=== PATIENT | female | born 1930 | race Caucasian/White ===

== ENCOUNTER 2017-10-01 20:07 | Observation (INO) | payer OTHER, MEDICARE ==
[2017-10-01] MEDS ORDERED: NS 1,000 ML IV ONE (20:31)
--- NOTE | 2017-10-01 20:35 | EDPHY ---
H & P Time Seen by Provider: 10/01/17 20:16 HPI/ROS: CHIEF COMPLAINT: Speech difficulty now resolved HISTORY OF PRESENT ILLNESS: The patient is an 87-year-old female who is visiting from [place]. She was sitting with her daughter writing [place] cards this evening at 6:15 a.m. when she suddenly developed difficulty writing. She threw away 2 cards and then began asking for help while writing the 3rd. Then her daughter noticed that her speech became mumbled. She did not have any weakness or facial deficits. Her daughter called her own doctor line who recommended they take the patient to the hospital. By the time she returned to her mom, the symptoms had resolved. Her symptoms lasted for a total of 20 min. They ate dinner and then the patient stated that she felt slightly lightheaded and want to come to the emergency department. She has not had a fever. She has not had any trauma. She denies any significant medical history does not take any medications. REVIEW OF SYSTEMS: Constitutional: denies: chills, fever, recent illness, recent injury EENTM: denies: blurred vision, double vision, nose congestion Respiratory: denies: cough, shortness of breath Cardiac: denies: chest pain, irregular heart rate, lightheadedness, palpitations Gastrointestinal/Abdominal: denies: abdominal pain, diarrhea, nausea, vomiting, blood streaked stools Genitourinary: denies: dysuria, frequency, hematuria, pain Musculoskeletal: denies: joint pain, muscle pain Skin: denies: lesions, rash, jaundice, bruising Neurological: See HPI Hematologic/Lymphatic: denies: blood clots, easy bleeding, easy bruising Immunologic/allergic: denies: HIV/AIDS, transplant - Physical Exam General Appearance: WD/WN, mild distress Eyes, Ears, Nose, Throat Exam: PERRL/EOMI, normal ENT inspection, pharynx normal Neck: non-tender, full range of motion, supple, normal inspection. No: stiff neck, tender lateral Cardiovascular/Chest: normal peripheral pulses, regular rate, rhythm Respiratory: chest non-tender, lungs clear, normal breath sounds. No: crackles , rhonchi Gastrointestinal/Abdominal: normal bowel sounds, non tender, soft Back Exam: normal inspection Extremity: normal range of motion, non-tender, normal inspection Mental Status: alert, oriented x 3 CN's Exam: normal hearing, normal speech, PERRL, normal eye position, normal gag reflex, normal pupil position, normal speech. No: facial asymmetry, facial droop, facial paresthesias, gaze palsy, tongue deviation to R, tongue deviation to L Coordination/Gait: normal finger to nose, normal gait Motor/Sensory: normal. No: motor deficit, sensory deficit, pronator drift (R), pronator drift (L), weak motor strength RUE, weak motor strength LUE, weak motor strength RLE, weak motor strength LLE DTR: tricep (R): 2+, tricep (L): 2+, knee (R): 2+, knee (L): 2+ Skin Exam: warm/dry, normal color Lymphatic: no adenopathy NIH stroke score 0 Source: Patient, Family Exam Limitations: No limitations - Medical/Surgical History Hx Asthma: No Hx Chronic Respiratory Disease: No Hx Diabetes: No Hx Cardiac Disease: No Hx Renal Disease: No Hx Cirrhosis: No Hx Alcoholism: No - Family History Significant Family History: No pertinent family hx - Social History Smoking Status: Never smoked Alcohol Use: Sober Drug Use: None Constitutional: Initial Vital Signs Temperature (C) 36.6 C 10/01/17 20:10 Heart Rate 97 10/01/17 20:10 Respiratory Rate 20 10/01/17 20:10 Blood Pressure 182/92 H 10/01/17 20:10 O2 Sat (%) 94 10/01/17 20:10 O2 Delivery Mode Room Air Allergies/Adverse Reactions: No Known Allergies Allergy (Unverified 10/01/17 20:18) Home Medications: Medication Instructions Recorded B12/Levomefolate Calcium/B-6 10/01/17 [Foltx Tablet] Combtapan (*) 10/01/17 Travatan Z 10/01/17 Aspirin [Aspirin 81mg (*)] 81 mg PO DAILY #100 tab 10/02/17 Atorvastatin Calcium [Lipitor 20 20 mg PO DAILY #30 tab 10/02/17 mg (*)] Medical Decision Making - Diagnostics EKG Interpretation: An EKG obtained and was read and documented in trace view. Please see trace view for full reading and report. Sinus rhythm. No acute ischemic changes ED Course/Re-evaluation: The patient clinically has had a TIA. Her NIH stroke score is now 0. She does have some baseline dementia but according to family this is unchanged. The patient's imaging and lab work initially are normal. I recommended admission for further workup. This is her 1st TIA. Patient family agree. I discussed the case with Dr. Alex Michaels who will admit to the medical service. Differential Diagnosis: Partial list of the Differential diagnosis considered include but were not limited to; TIA, syncope, seizure and although unlikely based on the history and physical exam, I also considered CVA, infection , tumor. - Data Points Laboratory Results: Laboratory Results 10/01/17 20:35 10/01/17 20:35 Medications Given: Discontinued Medications Aspirin (Aspirin) 324 mg PO EDNOW ONE Stop: 10/01/17 21:13 Last Admin: 10/01/17 21:30 Dose: 324 mg Aspirin (Aspirin) 81 mg PO DAILY HEAVENLY Stop: 03/31/18 08:59 Last Admin: 10/02/17 07:49 Dose: 81 mg Enoxaparin Sodium (Lovenox) 40 mg SC DAILY HEAVENLY Stop: 03/31/18 08:59 Last Admin: 10/02/17 07:49 Dose: 40 mg Sodium Chloride (Ns) 1,000 mls @ 500 mls/hr IV EDNOW ONE PRN Reason: Protocol Stop: 10/01/17 22:30 Last Admin: 10/01/17 20:57 Dose: 1,000 mls Labetalol HCl (Trandate Injection) 5 mg IVP ONCE ONE Stop: 10/01/17 22:13 Last Admin: 10/01/17 22:14 Dose: 5 mg Lisinopril (Zestril) 10 mg PO DAILY PENDING SALE TO [facility] Stop: 03/31/18 08:59 Last Admin: 10/02/17 07:49 Dose: 10 mg Departure - Departure Disposition: [facility] Inpatient Acute Clinical Impression: Transient cerebral ischemia Qualifiers: Transient cerebral ischemia type: unspecified Qualified Code(s): G45.9 - Transient cerebral ischemic attack, unspecified Condition: Fair
[2017-10-01 20:43] LABS: PLATELET COUNT 220 10^3/uL (150-400)
--- NOTE | 2017-10-01 20:43 | CPEKG ---
Heart Rate: 90 RR Interval: 667 P-R Interval: 172 QRSD Interval: 88 QT Interval: 376 QTC Interval: 460 P Callicoon: 45 QRS Callicoon: -9 T Wave Callicoon: 36 EKG Severity - NORMAL ECG - EKG Impression: SINUS RHYTHM Electronically Signed By: Patricio Garay 01-Oct-2017 20:45:17
[2017-10-01 20:52] LABS: INR 0.95 (0.83-1.16); PROTIME(PATIENT) 12.6 SEC (12.0-15.0)
[2017-10-01] MEDS ORDERED: ASPIRIN 81 MG CHEWABLE TAB PO ONE (21:12)
[2017-10-01] MEDS ORDERED: LABETALOL HCL 5 MG/ML 20 ML MDV IVP ONE (22:12)
[2017-10-01] MEDS ORDERED: LABETALOL HCL 5 MG/ML 20 ML MDV ONE (22:13)
[2017-10-01] MEDS ORDERED: ONDANSETRON 4 MG/2 ML VIAL IVP PRN (23:25)
[2017-10-01] MEDS ORDERED: ACETAMINOPHEN 325 MG TAB PO PRN (23:25)
--- NOTE | 2017-10-01 23:33 | PDGENHP ---
History and Physical - Chief Complaint difficulty writing, mumbled speech - History of Present Illness Source - patient able to provide history, daughter at bedside and supplements details. HPI - Pleasant 87 yo F with pmx significant for glaucoma who presented to [facility] this evening History Information - Allergies/Home Medication List Allergies/Adverse Reactions: No Known Allergies Allergy (Unverified 10/01/17 20:18) Home Medications: B12/Levomefolate Calcium/B-6 [Foltx Tablet] 10/01/17 [Last Taken Unknown] Combigan (*) 10/01/17 [Last Taken Unknown] Travatan Z 10/01/17 [Last Taken Unknown] I have personally reviewed and updated: family history, medical history, social history, surgical history - Past Medical History Additional medical history: glaucoma. macular degeneration. osteoporosis s/p tx. benign essential HTN untreated. hearing deficit with hearing aids. breast ca in remission. murmur known. pt denies hx of valvular disease. narrowed/stenotic airway - Surgical History Additional surgical history: bilateral TKA. R mastectomy with LN dissection - Family History Additional family history: no fhx CVA, CAD - Social History Smoking Status: Never smoked Alcohol Use: None Drug Use: None Additional social history: patient lives in [place]. Here visiting daughter. COR - FULL. daughter Madalyn is MDPOA. Review of Systems Review of Systems: ROS: 10pt was reviewed & negative except for what was stated in HPI & below Constitutional: Denies: chills, fever Cardiac: Reports: no symptoms. Denies: chest pain, edema, lightheadedness, palpitations Respiratory: Reports: no symptoms Gastrointestinal: Reports: no symptoms Genitourinary: Reports: no symptoms Muscolosketal: Reports: no symptoms Skin: Reports: no symptoms Neurological: Reports: no symptoms Hematologic/Lymphatic: Reports: no symptoms Physical Exam Physical Exam: Selected Entries 10/01/17 20:10 Blood Pressure Automatic Method Heart Rate 97 Respiratory 20 Rate O2 Sat (%) 94 Temperature (C) 36.6 C Blood Pressure 182/92 H Mean Arterial 122 H Pressure (MAP) O2 Delivery Room Air Mode Temperature Oral Source Temp Pulse Resp BP Pulse Ox 36.6 C 85 18 182/97 H 95 10/01/17 23:05 10/01/17 23:05 10/01/17 23:05 10/01/17 23:05 10/01/17 23:05 Constitutional: no apparent distress, not in pain, chronically ill appearing, other (NAd. pleasant elderly frail appearing female is laying comfortably in bed. daughter and son-in-law at bedside. ) Eyes: PERRL, anicteric sclera, EOMI Ears, Nose, Mouth, Throat: moist mucous membranes, hard of hearing, No hearing normal, No no oral mucosal ulcers, No poor dentition Cardiovascular: regular rate and rhythym, systolic murmur (3/6 systolic greatest right sternal border), pulses symmetric bilaterally, No edema Peripheral Pulses: 1+: dorsalis-pedis (R), dorsalis-pedis (L) Respiratory: no respiratory distress, no rales or rhonchi, clear to auscultation , No expiratory wheeze Gastrointestinal: normoactive bowel sounds, soft, non-tender abdomen, no palpable masses, No tenderness Genitourinary: no bladder tenderness, No cervantes in urethra Skin: warm, normal color, no rashes or abrasions, No mottled, No rash Musculoskeletal: no muscle tenderness, No joint tenderness, No abnormal gait Neurologic: weakness (left proximal and distal arm strength 4/5 compared to right 5/5. ), CN II-XII Intact, other (decreased reflexes bilaterally knees. ), No facial droop Psychiatric: interacting appropriately, not anxious, not encephalopathic, thought process linear, No encephalopathic, No anxious, No poor insight, No poor judgement, No poor memory Lab Data & Imaging Review 10/02/17 03:09 10/02/17 03:09 WBC 7.41 10^3/uL (3.80-9.50) 10/01/17 20:35 RBC 4.49 10^6/uL (4.18-5.33) 10/01/17 20:35 Hgb 13.7 g/dL (12.6-16.3) 10/01/17 20:35 Hct 40.9 % (38.0-47.0) 10/01/17 20:35 MCV 91.1 fL (81.5-99.8) 10/01/17 20:35 MCH 30.5 pg (27.9-34.1) 10/01/17 20:35 MCHC 33.5 g/dL (32.4-36.7) 10/01/17 20:35 RDW 13.2 % (11.5-15.2) 10/01/17 20:35 Plt Count 220 10^3/uL (150-400) 10/01/17 20:35 MPV 10.3 fL (8.7-11.7) 10/01/17 20:35 Neut % (Auto) 64.5 % (39.3-74.2) 10/01/17 20:35 Lymph % (Auto) 21.6 % (15.0-45.0) 10/01/17 20:35 Schleicher % (Auto) 9.3 % (4.5-13.0) 10/01/17 20:35 Eos % (Auto) 3.9 % (0.6-7.6) 10/01/17 20:35 Baso % (Auto) 0.4 % (0.3-1.7) 10/01/17 20:35 Nucleat RBC Rel Count 0.0 % (0.0-0.2) 10/01/17 20:35 Absolute Neuts (auto) 4.78 10^3/uL (1.70-6.50) 10/01/17 20:35 Absolute Lymphs (auto) 1.60 10^3/uL (1.00-3.00) 10/01/17 20:35 Absolute Monos (auto) 0.69 10^3/uL (0.30-0.80) 10/01/17 20:35 Absolute Eos (auto) 0.29 10^3/uL (0.03-0.40) 10/01/17 20:35 Absolute Basos (auto) 0.03 10^3/uL (0.02-0.10) 10/01/17 20:35 Absolute Nucleated RBC 0.00 10^3/uL (0-0.01) 10/01/17 20:35 Immature Gran % 0.3 % (0.0-1.1) 10/01/17 20:35 Immature Gran # 0.02 10^3/uL (0.00-0.10) 10/01/17 20:35 PT 12.6 SEC (12.0-15.0) 10/01/17 20:35 INR 0.95 (0.83-1.16) 10/01/17 20:35 APTT 27.8 SEC (23.0-38.0) 10/01/17 20:35 Sodium 139 mEq/L (134-144) 10/01/17 20:35 Potassium 4.0 mEq/L (3.5-5.2) 10/01/17 20:35 Chloride 103 mEq/L (97-110) 10/01/17 20:35 Carbon Dioxide 22 mEq/l (22-31) 10/01/17 20:35 Anion Gap 14 mEq/L (8-16) 10/01/17 20:35 BUN 15 mg/dL (7-23) 10/01/17 20:35 Creatinine 0.9 mg/dL (0.6-1.0) 10/01/17 20:35 Estimated GFR 59 10/01/17 20:35 Glucose 126 mg/dL (70-100) H 10/01/17 20:35 Calcium 9.3 mg/dL (8.5-10.4) 10/01/17 20:35 Troponin I < 0.012 ng/mL (0.000-0.034) 10/01/17 20:35 Imaging Review: Chest, PA and Lateral October 01, 2017 History: Acute neurologic changes. Findings: The heart size is within normal limits. The aorta is tortuous, with calcifications, indicating atherosclerosis disease. Small calcified granulomas are seen bilaterally. No evidence for acute airspace consolidation. Emphysematous configuration to the chest. No evidence for a pleural effusion or pneumothorax. Degenerative change thoracic spine, with scoliotic curvature at the thoracolumbar junction. Impression: No evidence for acute cardiopulmonary abnormality. Chronic findings, as above. CT Head, Without Contrast History: Difficulty writing and speaking. Possible TIA versus CVA. Technique: Standard noncontrast head CT protocol utilizing axial images acquired through the calvarium. Images were reconstructed down to 1.25-mm slice thickness, as well. Radiation dose technique was utilized. Findings: Mild periventricular and deep hemispheric white matter change. No evidence for acute infarct, intracranial hemorrhage, or mass. The ventricles, sulci, and cisterns are diffusely prominent. No evidence for an extraaxial fluid collection. Vascular calcifications are seen intracranially. No evidence for a skull fracture. No evidence for an air- fluid level in the paranasal sinuses. Impression: 1. No evidence for acute intracranial abnormality. 2. Mild periventricular and deep hemispheric white matter change that can be seen with small vessel ischemic disease. 3. Generalized cerebral atrophy. Visualized and Interpreted Chest x-ray results: Yes Visualized and Interpreted imaging results: Yes Visualized and Interpreted EKG results: Yes EKG additional interpertation: NSR 90s. no acute ST elevations. <1mm depression III only. QTc 460. Assessment & Plan Assessment: 87 yo F with hx HTN untreated, glaucoma who presented to [facility] with sudden onset aphasia now resolved. #Aphasia - concerning for TIA. patient sx reported to be completely resolved. CN testing intact. patient with slight decreased strength left UE compared to right. Patient admitted with TIA protocol, neuro testing. echo, carotid doppler , MRI in AM. s/p ASA at [facility] will continue 81mg daily. PT/OT/SL testing. patient passed swallow eval at [facility]. check Lipid panel, a1c in AM. #TIA - as above. #accelerated HTN - s/p dose labetalol. patient reports known history of HTN untreated was being monitored. will start lisinopril 10mg daily. patient will plan to f/u with PCP. slow titrate down on BPs as likely chronically elevated. #hyperglycemia - nonfasting lab. check AM BMP and a1c in AM. chronic medical problems glaucoma - continue gtts macular degeneration - assistance with ambulation prn. osteoporosis - s/p tx hearing deficit - pt without hearing aids at bedside. FEN - PO hydration as tolerated. electrolyte replacement if needed. cardiac diet. PPX - SCDs. lovenox. COR - FULL. daughter Madalyn CARRIZALES Dispo - admit to observation on med/surg for close neurologic monitoring.
[2017-10-02 03:23] VITALS: RESP 16
[2017-10-02 04:14] LABS: PLATELET COUNT 175 10^3/uL (150-400)
[2017-10-02 07:29] VITALS: BP 127/59; PULSE 69; TEMP 97.8; O2SAT 94
[2017-10-02] MEDS ORDERED: ENOXAPARIN 40 MG/0.4 ML SYR SC SCH (09:00)
[2017-10-02] MEDS ORDERED: LISINOPRIL 10 MG TAB PO SCH (09:00)
[2017-10-02] MEDS ORDERED: ASPIRIN 81 MG CHEWABLE TAB PO SCH (09:00)
--- NOTE | 2017-10-02 11:21 | GDS ---
[f rep st] DISCHARGE SUMMARY DISCHARGE DIAGNOSES: 1. Resolved difficulty writing and speaking. Suspect transient ischemic attack. 2. History of hypertension. 3. History of glaucoma. 4. Osteoporosis. HOSPITAL COURSE AND STAY BY PROBLEM: Resolved aphasia, suspect TIA: The patient was placed on obser vation on telemetry where she had no malignant arrhythmias. A carotid Doppler was done that was nega tive for flow-limiting carotid artery stenosis. An echo was done prior to discharge. Preliminary re ad was negative for thrombus. She does have some aortic stenosis. Total cholesterol was 165, LDL 94 , HDL 49. A1c is currently pending. On day of discharge, the patient states she feels fine and requests to be [facility] so she can go to a show in [place]. An MRI of the brain was ordered. The patient would like to karen ve as soon as possible and would like to have the MRI done as an outpatient, which I think is reasona ble. PHYSICAL EXAM: VITAL SIGNS: On day of discharge, blood pressure 127/59, pulse 69, respiratory rate 16, O2 saturation 94% on room air, temperature afebrile. NEURO: Cranial nerves 2-12 grossly intact. No pronator drift. Face is symmetric. Speech is normal. Muscle strength 5/5 flexion, extension i n the upper and lower extremities, muscle strength 5/5 hydrologist strength bilaterally. DISCHARGE MEDICATIONS: Please refer to discharge medication reconciliation in [facility] for full deta ils. Below is a preliminary list. New medications on hospital discharge: Aspirin 81 mg daily, Lipitor 20 mg daily. DISCHARGE INSTRUCTIONS: The patient will be discharged from the hospital where she should follow up with her primary care provider upon returning to [place]. At that time, an MRI can be considered. She will need followup of her hemoglobin A1c. She is instructed to seek emergency medical attentio n if she develops any recurrent signs of stroke. /[id number]/MODL
--- NOTE | 2017-10-02 13:26 | ECHO ---
[email or web address] [address] Main: [phone] Fax: Transthoracic Echocardiogram Name: DOROTA MEZA MR#: [id number] Study Date: 10/02/2017 Study Time: 09:50 AM Date of : 1930 Age: 87 year(s) Height: 160 cm (63 in.) Weight: 57.61 kg (127 lb.) BSA: 1.59 m2 Gender: Female Examination: Echo Indication: TIA Image Quality: Contrast: Requested by: Coleen Hendrickson BP: 127 mmHg/59 mmHg Heart Rate: Rhythm: Indication: TIA Procedure Staff Senior Software Manager: Kandy Chua Reading Physician: Chevy Meyers Requesting Provider: Conclusions: Mildly dilated left ventricle. Mild concentric LV hypertrophy. Normal global systolic LV function. The ejection fraction is estimated to be 65-70 %. The mitral valve is normal in appearance and function. Trivial mitral valve regurgitation. Mild calcific aortic valve stenosis. Mild aortic valve regurgitation is present. AV max PG is 19mmHG. AV mean PG is 11mmHG.. Trivial to mild tricuspid valve regurgitation. Measurements: Chambers Valvular Assessment AV/MV Valvular Assessment TV/PV Normal Normal Normal Name Value Range Name Value Range Name Value Range Ao Katherine (MM): 3.7 cm (2.2 cm-3.7 AV meanP mmHg ( - ) TR Vmax: 2.21 mm/s ( - ) cm) LVOT Vmax: 1.02 m/s (0.7 m/s-1.1 TR PGmax: 20 mmHg ( - ) IVSd (2D): 0.8 cm (0.6 cm-1.1 m/s) syst. PAP: 25 mmHg ( - ) cm) TEVIN (VTI): 2.1 cm ( - ) LVDd (2D): 6.0 cm (3.9 cm-5.3 MV E Vmax: 0.64 m/s ( - ) cm) MV A Vmax: 0.82 m/s ( - ) LVDs (2D): 4.0 cm (2.1 cm-4 MV E/A: 0.78 ( - ) cm) LVPWd (2D): 0.8 cm ( - ) LVOTd 2.2 cm 2.2 cm mm LVEF (MOD4): 73 % (>=55 %) EF Range: 65-70 % Continued Measurements: Chambers Valvular Assessment AV/MV Valvular Assessment TV/PV Patient: DOROTA MEZA Study Date: 10/02/2017 Page 1 of 2 09:50 AM Name Value Name Value Name Value LADs: 2.8 cm MV E/E' Septal: 11.50 CVP (est.): 5 mmHg LADs Lon.7 cm MV E/E' Lateral: 11.70 LA Area: 22.4 cm2 Findings: Left Ventricle: Mildly dilated left ventricle. Mild concentric LV hypertrophy. Normal global systolic LV function. The ejection fraction is estimated to be 65-70 %. No regional wall motion abnormality. Right Ventricle: Normal size right ventricle. Left Atrium: The left atrium is mildly dilated. Right Atrium: The right atrium is normal in size. Mitral Valve: The mitral valve is normal in appearance and function. Trivial mitral valve regurgitation. Aortic Valve: The aortic valve is normal in appearance and function. Mild calcific aortic valve stenosis. Mild aortic valve regurgitation is present. AV max PG is 19mmHG. AV mean PG is 11mmHG.. Tricuspid Valve: The tricuspid valve is normal in appearance and function. Trivial to mild tricuspid valve regurgitation. Pulmonic Valve: The pulmonic valve is normal in appearance and function. Aorta: The aorta is normal. Pericardium: No pericardial effusion. (No Signature Object) Patient: DOROTA MEZA Study Date: 10/02/2017 Page 2 of 2 09:50 AM [id number]
--- NOTE | 2017-10-02 13:59 | ASDISCHSUM ---
Discharge Information Plan Status:Home with No Needs Medically Cleared to Leave:10/01/2017 Discharge Date:10/02/2017 11:40 AM CM D/C Disposition:Home, Routine, Self-Care ADT D/C Disposition:Home, Routine, Self-Care Projected Discharge Date:10/02/2017 11:40 AM Transportation at D/C:Family Discharge Delay Reason: Follow-Up Date:10/02/2017 11:40 AM Discharge Slot: Final Diagnosis: Placement Information Patient Contact Information Contact Name:RADHA Relationship:Daughter Address: Work Phone: City: [place] Phone: State/[place] Code: Email: Financial Information Financial Class: Primary Plan Desc:MEDICARE OUTPATIENT Primary Plan Number:[id number] Secondary Plan Desc:[employer]/MDR SUPPLEMENT Secondary Plan Number:[id number] Assessment Information Case Management Discharge Plan Note Case Management Discharge Discharge Order Complete? Answers: Yes Patient to Obtain Answers: via Family Medications Transportation Arranged Answers: Family/Friends Discharge Comments Notes: 10/02/2017 Case Management Note Met w/pt. TALIB signed. Pt is visiting daughter Karie ([phone] home, cell) and son in law in [place]. She lives in her own home independently in [place]. She plans to attend a play in [place] this afternoon and catch a flight home to [facility] at 8:30 pm. There are no case management d/c needs. Pt d/c independently. Date Signed: 10/02/2017 01:58 PM Electronically Signed By:Elizabeth Mon RN Intervention Information Intervention Type:ZACHARY-Signed Date of Service:10/02/2017 01:58 PM Patient Type:Observation Staff Member:DAQUAN Mon Hillary Hours: Discipline: Severity: Comment:
== END 2017-10-02 11:40 | disposition home or self-care (01) ==
LOC: CED 20:07 → CEDHOLD 21:12 → F2W 23:00
PROVIDERS: ADMIT Internal Medicine; ATTEND Family Medicine
PROC: 3E0337Z Introduction of Electrolytic and Water Balance Substance into Peripheral Vein, Percutaneous Approach (ICD-10-PCS; principal; 2017-10-01)
DX: R47.01 Aphasia (principal); R29.700 NIHSS score 0; I10 Essential (primary) hypertension; H40.9 Unspecified glaucoma; M81.0 Age-related osteoporosis without current pathological fracture; F03.90 Unspecified dementia, unspecified severity, without behavioral disturbance, psychotic disturbance, mood disturbance, and anxiety; R73.9 Hyperglycemia, unspecified; I70.8 Atherosclerosis of other arteries; Z96.653 Presence of artificial knee joint, bilateral; Z90.11 Acquired absence of right breast and nipple
CPT/HCPCS: 70450; 71020; 93005; 93306; 93880; 96361; 96374; 97165; 99285; G0378; G8987; G8989; J1650; J3490; 80048-PO; 84484-PO; 85025-PO; 85610-PO; 85730-PO